=== PATIENT | male | born 1975 | race Caucasian/White ===

== ENCOUNTER → 2025-01-05 | Outpatient (CLI) | payer OTHER ==
[2025-01-05 16:54] LABS: Basophils % (A) 0 %; Eosinophils # (A) 0.2 k/uL (0-0.7); Eosinophils % (A) 2 %; HCT 44.5 % (39.0-53.0); HGB 14.4 gm/dL (13.0-17.5); Lymphocytes # (A) 2.5 k/uL (1.0-4.8); Lymphocytes % (A) 28 %; MCHC 32.4 g/dL (31.0-37.0); MCV 95.7 fL (80.0-100.0); Mean Platelet Volume 7.4; Monocytes # (A) 0.5 k/uL (0-1.0); Monocytes % (A) 6 %; Neutrophils # (A) 5.4 k/uL (1.3-7.7); Neutrophils % (A) 61 %; Platelet Count 218 k/uL (150-450); RBC 4.66 m/uL (4.30-5.90); RDW 11.8 % (11.5-15.5); WBC 8.9 k/uL (3.8-10.6)
[2025-01-05 17:19] LABS: ALT 25 U/L (4-49); AST 22 U/L (17-59); African American GFR (CKD) >90 (>60 ml/min/1.73 sqM); Albumin 4.8 g/dL (3.5-5.0); Albumin/Globulin Ratio 1.6; Alkaline Phosphatase 37 U/L (38-126); Anion Gap 11 mmol/L; Blood Urea Nitrogen 16 mg/dL (9-20); Calcium 9.8 mg/dL (8.4-10.2); Carbon Dioxide 23 mmol/L (22-30); Chloride 101 mmol/L (98-107); Glucose 99 mg/dL (74-99); Non-African American GFR(CKD) >90 (>60 ml/min/1.73 sqM); Potassium 4.5 mmol/L (3.5-5.1); Sodium 135 mmol/L (137-145); Total Bilirubin 0.7 mg/dL (0.2-1.3); Total Protein 7.8 g/dL (6.3-8.2)
--- NOTE | 2025-01-05 18:13 | CT ---
EXAMINATION TYPE: CT abdomen pelvis wo con DATE OF EXAM: 01/05/2025 4:56 PM COMPARISON: None. CLINICAL INDICATION: Male, 49 years old with history of R10.32 LOWER QUADRANT PAIN, LLQ pain TECHNIQUE: Axial images were obtained from above the diaphragm to the pubic rami in the axial plane a t 5 mm thick sections. Reconstructed images are reviewed on the computer in the coronal plane. CONTRAST: mL of . Study performed with Oral Contrast DLP: 1297.7 mGycm, Automated exposure control for dose reduction was used. FINDINGS: Limited CT sections are obtained the lung bases. The lung bases are clear. CT ABDOMEN: Liver: Normal Spleen: Normal Pancreas: Normal Adrenal glands: The adrenal glands are normal. Gallbladder: Normal Kidneys: No masses are evident. No hydronephrosis is present. There is a 2 cm cyst on the lateral r ight kidney no renal stones evident. Aorta: Vascular calcification is within the aorta. Inferior vena cava: Normal. CT PELVIS: Loops of bowel within the abdomen and pelvis are normal. Diverticular changes without acute diverticu litis within the sigmoid colon. There are loops of bowel which are incompletely distended or lack ora l contrast limiting their evaluation. Appendix: Normal as visualized. Urinary bladder: Normal. Genitourinary structures: Prostate appears normal Osseous structures: No suspicious lytic or sclerotic lesions. Some subtle changes are in the lower rogers mbar spine. Disc changes are within the upper lumbar spine IMPRESSION: 1. Diverticulosis without acute diverticulitis. [facility], , 01/05/2025 6:10 PM
--- NOTE | 2025-01-06 05:56 | US ---
EXAMINATION TYPE: US scrotum with doppler. DATE OF EXAM: 01/05/2025 COMPARISON: NONE CLINICAL INDICATION: Male, 49 years old with history of [id number] TESTI PAIN; pain TECHNIQUE: Grayscale, color Doppler and spectral Doppler imaging of the scrotum. FINDINGS: EXAM MEASUREMENTS: TESTICLES: Right Testicle: 4.1 x 2.4 x 3.8 cm Left Testicle: 3.9 x 2.5 x 3.0 cm EPIDIDYMIS HEAD: Right Epididymis: .7 x 1.0 x .8 cm Left Epididymis: 1.2 x .7 x 1.2 cm Doppler performed to assess for testicular vascularity; good bilateral color flow and spectral wavefo eusebio are seen. Presence of hydroceles: Yes bilateral Presence of varicoceles: no IMPRESSION: Satisfactory symmetric blood flow to both testicles is seen [facility], , 01/06/2025 5:54 AM
[2025-01-06 11:10] LABS: HIV 2 AB Non-Reactive (Non-Reactive); HIV AB P24 Non-Reactive (Non-Reactive); HIV P24 AG Non-Reactive (Non-Reactive); HSV I IgG Interp Positive (Negative); HSV II IgG Interp Negative (Negative)
== END | disposition home or self-care (01) ==
LOC: RADCTMAIN 14:40
PROVIDERS: ATTEND Family Medicine
DX: Z11.3 Encounter for screening for infections with a predominantly sexual mode of transmission (principal); K57.30 Diverticulosis of large intestine without perforation or abscess without bleeding; N50.819 Testicular pain, unspecified
CPT/HCPCS: 74176; 76870; 80053; 85025; 86695; 86696; 86780; 87390; 93975